=== PATIENT | male | born 1945 | race Caucasian/White ===

== ENCOUNTER 2016-12-19 18:55 | Inpatient (IN) | payer BC, OTHER ==
--- NOTE | ~2016-12-19 | HP ---
History And Physical [facility] [address] [place]. [address] NAME: GREG BANGURA JR : 47 STATUS : ADM IN [facility]#: [id number] AGE: 70 ADM/REG DATE : 12/19/16 MR#: [id number] REPORT SERV DATE: 12/20/16 DICTATED BY: JUAN FRANKLIN DATE: 12/19/16 REPORT STATUS : Draft TRANSCRIBED BY: MODMannie DATE: 12/19/16 DATE OF ADMISSION: 12/19/2016 POINT OF ENTRY: [facility] Emergency Department. PRIMARY CARE PHYSICIAN: Micheal Johnson M.D. of [facility]. CHIEF COMPLAINT: Weakness, trouble walking, shakes. HISTORY OF PRESENT ILLNESS: Mr. Bangura is a 70-year-old gentleman with history of chronic alcoholism with alcoholic cirrhosis as well as atrial fibrillation, hypertension, and insulin-dependent diabetes type 2 who presents to Emergency Department with the above mentioned complaints. The patient states he has been drinking approximately 875 mL of whisky per day. For some unclear reason, he decided to stop drinking last night. Stated his last drink was last night although he did attempt to have one beer today to help with the shakes that developed earlier this morning. However, it did not taste well and therefore, he did not consume the entire beer. He is unable to tell me exactly why he decided to stop drinking today. The patient states he has constant dizziness, requires using a cane at home for ambulation. He states he has peripheral neuropathy with impaired sensation in his bilateral lower extremities. Beginning today, he started to develop difficulties walking and even with the use of his cane, he could not walk without stumbling and/or falling to the ground. He denies any loss of consciousness. Denies any head trauma. Initial evaluation in the Emergency Department, blood pressure 177/141. EKG was atrial fibrillation with RVR. Pulse of 117. Labs notable for a magnesium level of 1.2. Alcohol level was negative. The patient had some chronic transaminitis. The patient was given some IV labetalol for his blood pressure as well as a half a milligram of IV Ativan for alcohol withdrawal and admitted to the Hospitalist Service. Comprehensive system was otherwise negative unless listed in the history of present illness. PREVIOUS MEDICAL HISTORY: 1. Alcoholism. 2. Alcoholic cirrhosis. 3. Hypertension. 4. Insulin-dependent diabetes mellitus type 2. 5. History of TIA. 6. Abdominal aortic aneurysm, status post repair. 7. Chronic thrombocytopenia. 8. Depression. 9. 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 10.Active tobacco abuse. History And Physical [address] [address] NAME: GREG BANGURA JR : 47 STATUS : ADM IN PAT#: [id number] AGE: 70 ADM/REG DATE : 12/19/16 MR#: [id number] REPORT SERV DATE: 12/20/16 DICTATED BY: JUAN FRANKLIN DATE: 12/19/16 REPORT STATUS : Draft TRANSCRIBED BY: SANTHOSH DATE: 12/19/16 SURGICAL HISTORY: Abdominal aortic aneurysm repair. ALLERGIES: ATENOLOL. HOME MEDICATIONS: 1. Albuterol 100 mg daily. 2. Vitamin D 1000 units daily. 3. Digoxin 0.25 mg daily. 4. Insulin 5 units b.i.d. 5. Lisinopril 5 mg daily. 6. Magnesium oxide 400 mg daily. 7. Seroquel 25 mg at bedtime p.r.n. 8. Ranitidine 300 mg daily. 9. Thiamine 100 mg daily. 10.Triamterene 50 mg daily. 11.Coreg, dose unknown. 12.Plavix, dose unknown. 13.Pradaxa, dose unknown. SOCIAL HISTORY: He states he smokes about three packs per day. Alcohol, has a history of chronic alcoholism. He states he consumed 1.75 L bottle of whisky every two days. Last drink was last night. Denies illicits. FAMILY MEDICAL HISTORY: Notable for hypertension. LABS AND IMAGIN. White count is 4.7, hemoglobin is 15.2, hematocrit is 42.1, platelet count is 47, INR is 1.2. 2. Sodium is 138, potassium 3.7, chloride 102, carbon dioxide 28, BUN 8, creatinine 0.81, glucose is 130, calcium is 8.2, magnesium is 1.2, protein 6.8, albumin is 3.2, bilirubin is 2.1. ALT 27, AST is 44, and alkaline phosphatase is 75. 3. Troponin is negative. 4. Alcohol level is negative. 5. Chest x-ray as per my review shows no acute cardiopulmonary abnormality. 6. EKG per my review shows atrial fibrillation with RVR. Heart rate of 117. Otherwise, no evidence of any acute ischemia or infarction. 7. CT scan of the brain, pending. PHYSICAL EXAMINATION: VITAL SIGNS: Temperature is 99.2 degrees Fahrenheit, pulse is 86, respirations 18, saturating 97% on room air, blood pressure is 177/141. There is no repeat blood pressure right now. GENERAL: Patient is awake, alert, in no acute distress. He is a chronically ill-appearing, disheveled, unkempt elderly male who is visibly tremulous. HEENT: Atraumatic and normocephalic. Moist mucous membranes. Pupils are equal, round, and reactive to light and accommodation. Extraocular movements intact. No scleral icterus. NECK: No jugular venous distention. No carotid bruits. History And Physical [address] [address] NAME: GREG BANGURA JR : 47 STATUS : [facility]M [facility]#: [id number] AGE: 70 ADM/REG DATE : 12/19/16 MR#: [id number] REPORT SERV DATE: 12/20/16 DICTATED BY: JUAN FRANKLIN DATE: 12/19/16 REPORT STATUS : Draft TRANSCRIBED BY: SANTHOSH DATE: 12/19/16 CARDIAC: Irregularly irregular rate and rhythm. No murmurs or gallops. Normal S1. Normal S2. LUNGS: Decreased breath sounds at bases with prolonged respiratory phase and some mild expiratory wheezes in the bases. ABDOMEN: Soft, nontender, and nondistended. Good bowel sounds. No rebound, guarding, or rigidity. EXTREMITIES: Warm and well perfused with no cyanosis or clubbing. Does have some 1+ pedal edema. SKIN: Warm and dry. PSYCH: Affect is tremulous and somewhat nervous. NEUROLOGIC: The patient is awake, alert, oriented x3. Cranial nerves II through XII are grossly intact. Speech is normal. Gait is not assessed. Cerebellar function is intact with [id number]. He has 4/5 strength bilateral lower extremities. The patient is visibly tremulous, has upper extremity tremors on extension as well as some mild asterixis and tongue fasciculations. ASSESSMENT AND PLAN: Mr. Bangura is a 70-year-old gentleman, history of alcoholism and alcoholic cirrhosis who presents with reports of shakiness in the status of recent alcohol abstinence as well as difficulties walking with ataxia. PROBLEM LIST: 1. Atrial fibrillation with rapid ventricular rate. 2. Hypertension. 3. Acute alcohol withdrawal. 4. Ataxia and dizziness. 5. Hypomagnesemia. 6. Alcoholic cirrhosis. 7. Peripheral neuropathy. PLAN: 1. Acute alcohol withdrawal. We will place the patient on some scheduled low-dose Librium given extensive alcohol intake history as well as thiamine, folate, and multivitamin. We will institute alcohol withdrawal protocol as well. 2. Atrial fibrillation with RVR. We will place the patient on diltiazem drip. If the patient maintains heart rates of greater than 110, checking his digoxin level, we will place the patient on some low-dose Coreg until his home Coreg dose can be confirmed. It appears that his Pradaxa was instructed to be held at last discharge secondary to his high fall risk due to alcohol withdrawal. We will continue to hold this until this can be addressed in the future. 3. Hypomagnesemia. Aggressive repletion 2 g IV here in the ER. 4. Hypertension. Suspect this is primarily due to alcohol withdrawal. We will treat this as well as continue the patient's home medications and IV hydralazine p.r.n. 5. Ataxia and dizziness. Suspect this is all secondary to the patient's chronic alcohol abuse with possible Wernicke encephalopathy as well as contribution from his known peripheral neuropathy. We will check a stat CT scan of the brain, place him on high- dose IV thiamine, have Physical Therapy evaluate the patient. It appears that the patient has had multiple admissions to our service in the past where he tends to always History And Physical [address] [address] NAME: GREG BANGURA : 47 STATUS : ADM IN PAT#: [id number] AGE: 70 ADM/REG DATE : 12/19/16 MR#: [id number] REPORT SERV DATE: 12/20/16 DICTATED BY: JUAN FRANKLIN DATE: 12/19/16 REPORT STATUS : Draft TRANSCRIBED BY: MODMannie DATE: 12/19/16 complain of ataxia and dizziness in the throes of either alcohol abuse and/or alcohol withdrawal and during his hospitalization, the patient seems to dramatically improve and is able to be discharged to home with only requirement of a cane for gait assistance. 6. Tobacco abuse. Nicotine replacement protocol. 7. Deep venous thrombosis prophylaxis. Lovenox subcu. CODE STATUS: The patient wishes to be full code. DAMARIS/RASHELL Juan Franklin MD / [id number] CC: Sincere Guo M.D.
--- NOTE | ~2016-12-19 | DS ---
Discharge Summary [address] [place]. [address] NAME: GREG BANGURA JR : 47 STATUS : DIS IN PAT#: [id number] AGE: 71 ADM/REG DATE : 12/19/16 MR#: [id number] REPORT SERV DATE: 12/22/16 DICTATED BY: MIGEL PARKINSON DATE: 12/21/16 REPORT STATUS : Draft TRANSCRIBED BY: MODL DATE: 12/21/16 ADMISSION DATE: 12/19/2016 DISCHARGE DATE: 12/21/2016 DISCHARGE DIAGNOSES: 1. Alcohol withdrawal. 2. Alcoholism. 3. Cirrhosis. 4. Chronic atrial fibrillation on Pradaxa. 5. Abdominal aortic aneurysm post stent graft, on Plavix. 6. Dizziness and ataxia associated with alcohol withdrawal, improved. 7. Uncontrolled hypertension, improved at discharge. 8. Type 2 diabetes with hemoglobin A1c 5.1. 9. Asymmetric edema, right greater than left lower extremity. 10.Leukopenia. 11.Thrombocytopenia. 12.Neuropathy. 13.Depression. 14.Chronic tobacco use. 15.Subclinical hypothyroidism. 16.Asymptomatic cholelithiasis. 17.Benign prostatic hypertrophy with history of elevated PSA, followed by Dr. Root. 18.Abnormal bladder CT, followed by Dr. Root. OPERATIONS AND PROCEDURES: None. PRESENT ILLNESS: This is a 70-year-old white male who was triaged in the emergency room on 12/19/2016 at 1714 hours, complaining of weakness. Admission vital signs: Blood pressure 177/141, temp 99.2, pulse 86, respirations 18, and O2 sat 97%. After evaluation in the emergency room, his primary diagnosis was alcohol withdrawal. He was referred to the Hospitalist Service for admission. He was seen by Dr. Vicente Govea and admitted as described on admission history and physical examination. Additional history included that he had been drinking roughly 875 mL of whiskey per day. He decided to stop drinking the night prior to his ER visit. He indicated that he has constant dizziness, using a cane or walker for ambulation, but that these symptoms progressed, prompting his ER visit. ADDITIONAL HISTORY: Per Dr. Govea. PHYSICAL EXAMINATION: Per Dr. Govea. ADMISSION LABORATORY: Per Dr. Govea. Discharge Summary [address] [place]. [address] NAME: GREG BANGURA JR : 47 STATUS : DIS IN PAT#: [id number] AGE: 71 ADM/REG DATE : 12/19/16 MR#: [id number] REPORT SERV DATE: 12/22/16 DICTATED BY: MIGEL PARKINSON DATE: 12/21/16 REPORT STATUS : Draft TRANSCRIBED BY: SANTHOSH DATE: 12/21/16 HOSPITAL COURSE: He was admitted with: 1. Atrial fibrillation with rapid ventricular response. 2. Hypertension. 3. Acute alcohol withdrawal. 4. Ataxia and dizziness. 5. Hypomagnesemia. 6. Alcoholic cirrhosis. 7. Peripheral neuropathy. On admission, he was given scheduled Librium plus alcohol withdrawal, CIWA protocol. He was placed on a Cardizem drip in addition to his home Coreg. Pradaxa and clopidogrel were held. He was given magnesium supplementation, multivitamins, and thiamine. His hospitalist care was assumed by the undersigned on 12/20/2016. He was seen at approximately 1140 hours. He felt better. He had no pain issues. He was eating without nausea or vomiting. He was calm without tremor. His blood pressure control was improving. At 1810 hours on that day, his CIWA was 1. He felt over-sedated. His Librium dosing was reduced. He was seen on 12/21/2016 at approximately 0940 hours. He felt fine. He had no pain complaints. He was not tremulous. He was eating without nausea or vomiting. He was ambulatory with a walker. He indicated that he needed to go home and wanted to be discharged. His blood pressure was 142/83, O2 sat 96% on room air, temp 97.8, and pulse 70 and irregular. He was calm with normal speech and he was oriented. His lungs were clear. He had no murmur or gallop. His abdomen was soft. He had lower extremity edema, right greater than left, which was unchanged. His sodium is 137, potassium 3.8, chloride 101, CO2 is 30, BUN 12, creatinine 0.74, glucose 102, calcium 8.2, magnesium 1.6, total protein 7, albumin 3.3, globulin 3.7, total bilirubin 3.1, alkaline phosphatase 77, ALT 26, AST 42. TSH 4.270, free T4 of 1.03. An ammonia was 20. White count 3.8, hemoglobin 15, and platelets 45,000. INR was 1.4. His blood sugars the previous day had been 118, 113, 111, and 141. A urine culture was growing Staph species, agglutination negative, and he was asymptomatic. His admission imaging was reviewed again. A brain CT showed atrophic changes with old deep white matter ischemic changes with no acute abnormality, and a chest x-ray did not show any Discharge Summary [address] [place]. [address] NAME: GREG BANGURA JR : 47 STATUS : DIS IN PAT#: [id number] AGE: 71 ADM/REG DATE : 12/19/16 MR#: [id number] REPORT SERV DATE: 12/22/16 DICTATED BY: MIGEL PARKINSON DATE: 12/21/16 REPORT STATUS : Draft TRANSCRIBED BY: SANTHOSH DATE: 12/21/16 infiltrate. It was felt that he had achieved a level of improvement and stability where he could be discharged home to the care of his son and 2 friends who stay with him. An appointment was made for him to be seen at the [facility] in one week. He indicated that he would consider as before alcohol rehab, and he understands that he "will if he continues drinking." DISCHARGE MEDICATIONS: His medications were reviewed and at discharge will be as follows: Coreg 12.5 mg twice daily, Seroquel 6.25 mg at bedtime as needed, B12 at 500 mcg daily, D3 at 1000 units daily, Pradaxa 150 mg twice daily, Plavix 75 mg daily, Lanoxin 0.25 mg daily, ranitidine 300 mg daily, Prinivil 5 mg daily, magnesium 420 mg daily, thiamine 100 mg daily, Viagra as needed. He will not use pending outpatient followup, Antivert, Dyrenium, insulin, Proscar, and allopurinol. The patient indicates that his Vascular and Cardiovascular physicians are aware of his coagulopathy and have recommended that he continue on Pradaxa and Plavix as described above, which he says he does take. Discharge time greater than 30 minutes. DICTATED BY: Migel Parkinson M.D. DD/SANTHOSH Migel Parkinson M.D. / [id number] CC: Sincere Durham M.D. [facility]
[~2016-12-19 18:55] MED LIST: *UNABLE1; B1100 PO; B12250T PO; COREG12 PO; COREG6 PO; DIGITEK0.25 MG PO; DYRENIUM50 MG PO; FLOMAX4 PO; FOLIC PO; LAN25 PO; LANTUS SC; LIBRIUM 10 MG C10 MG PO; MAGOX4 PO; MULTIPLE VIT PO; NOVOLOG SC; OMNICEF300 PO; PLAVIX PO; PRADAXA PO; PRADAXA150 MG PO; PRIN5 PO; PROSCAR5 PO; PROTONIX PO; VITAMIN D1000 UNI1 PO; ZANTAC 150 PO; ZANTAC300 MG PO
[2016-12-19] MEDS ORDERED: Z100 PO (19:19)
[2016-12-19] MEDS ORDERED: MAGOX4 PO (19:19)
[2016-12-19] MEDS ORDERED: DYRENIUM50 MG PO (19:20)
[2016-12-19] MEDS ORDERED: LAN25 PO (19:20)
[2016-12-19] MEDS ORDERED: PRIN5 PO (19:20)
[2016-12-19] MEDS ORDERED: VITAMIN D31000 UNIT PO (19:20)
[2016-12-19] MEDS ORDERED: B1100 PO (19:20)
[2016-12-19] MEDS ORDERED: NOVOLOG SC (19:21)
[2016-12-19 19:33] LABS: BASOPHILS 0.4 %; BASOPHILS ABSOLUTE 0.02 10/3/uL (0.0-0.16); EOSINOPHILS 0.6 %; EOSINOPHILS ABSOLUTE 0.03 10/3/uL (0.0-0.53); ER CBC TAT 0 Hrs 03 Mins; HEMATOCRIT 42.1 % (40.0-51.0); HEMOGLOBIN 15.2 g/dL (13.6-17.8); IMMATURE GRANULOCYTES 0.4 %; IMMATURE GRANULOCYTES ABSOLUTE 0.02 10/3/uL (0.0-0.11); LYMPHOCYTES 10.9 %; LYMPHOCYTES ABSOLUTE 0.51 10/3/uL (0.67-4.30); MEAN CORPUS HGB CONC 36.1 g/dL (32.0-36.0); MEAN CORPUSCULAR HEMOGLOB 34.4 pg (26.0-34.0); MEAN PLATELET VOLUME 8.6 fL (9.2-13.0); MONOCYTES 9.4 %; MONOCYTES ABSOLUTE 0.44 10/3/uL (0.21-1.20); NEUTROPHILS 78.3 %; NEUTROPHILS ABSOLUTE 3.65 10/3/uL (2.02-8.40); RBC DISTRIBUTION WIDTH 14.7 % (12.0-16.0); RED CELL COUNT 4.42 10/6/uL (4.7-6.1); WHITE BLOOD CELLS 4.7 10/3/uL (4.5-10.5)
[2016-12-19 19:35] LABS: MEAN CORPUSCULAR VOLUME 95.2 fL (80-100); PLATELET COUNT 47 10/3/uL (150-400)
[2016-12-19 19:36] LABS: MANUAL DIFF NO %
[2016-12-19 19:54] LABS: RBC MORPHOLOGY NORM (NORMAL)
[2016-12-19 19:55] LABS: INTERNATIONAL NORMAL RATI 1.2 UNITS (-); PROTIME (NOT ORD) 14.9 SEC (12.0-14.5)
[2016-12-19 19:56] LABS: PARTIAL THROMBO TIME 33.5 SEC (22.5-37.2)
[2016-12-19 20:01] LABS: ALBUMIN 3.2 G/DL (3.5-5.0); ALCOHOL < 10 MG/DL (0); ALKALINE PHOSPHATASE 75 U/L (45-117); BUN (BLOOD UREA NITROGEN) 8 MG/DL (6-23); CALCIUM, SERUM 8.2 MG/DL (8.5-10.4); CHEST PAIN PROFILE TAT 0 Hrs 31 Mins; CHLORIDE, SERUM 102 MMOL/L (96-112); CO2 (CARBON DIOXIDE) 28 MMOL/L (24-34); CREATININE 0.81 MG/DL (0.70-1.30); DIGOXIN 0.2 NG/ML (0.8-2.0); DIRECT BILIRUBIN 0.7 MG/DL (0.0-0.4); GFR AFRICAN AMERICAN 105 ML/MIN (>=60); GFR NON AFRICAN AMERICAN 91 ML/MIN (>=60); GLUCOSE, SERUM 130 MG/DL (60-99); INDIRECT BILIRUBIN(NOT ORDER) 1.4 MG/DL (0.1-0.9); POTASSIUM, SERUM 3.7 MMOL/L (3.5-5.3); SGOT(AST) 44 U/L (5-40); SGPT(ALT) 27 U/L (5-65); SODIUM, SERUM 138 MMOL/L (135-148); TOTAL BILIRUBIN 2.1 MG/DL (0-1.2); TOTAL PROTEIN 6.9 G/DL (6.0-8.5); TROPONIN I <0.02 NG/ML (<0.05)
[2016-12-19] MEDS ORDERED: ZANTAC300 MG PO (20:28)
[2016-12-19] MEDS ORDERED: SEROQUEL25 PO (20:29)
[2016-12-19] MEDS ORDERED: PRADAXA150 MG PO (20:29)
[2016-12-19] MEDS ORDERED: COREG12 PO (20:29)
[2016-12-19] MEDS ORDERED: PLAVIX PO (20:29)
[2016-12-19] MEDS ORDERED: *UNABLE1 (20:31)
[2016-12-20 04:02] LABS: ASCORBIC ACID (UR NOT ORDER) NEG (NEG); BILIRUBIN, URINE NEGATIVE (NEG); KETONE, URINE NEGATIVE (NEG); LEUKOCYTE ESTERASE(NOT OR LARGE (NEG); WBC (NOT ORDERED) (RFLEX) 93 (0-5)
[2016-12-20 06:37] LABS: BUN (BLOOD UREA NITROGEN) 11 MG/DL (6-23); CALCIUM, SERUM 7.9 MG/DL (8.5-10.4); CHLORIDE, SERUM 101 MMOL/L (96-112); CO2 (CARBON DIOXIDE) 27 MMOL/L (24-34); FREE T4 1.03 NG/DL (0.76-1.46); GFR AFRICAN AMERICAN 101 ML/MIN (>=60); GFR NON AFRICAN AMERICAN 87 ML/MIN (>=60); GLUCOSE, SERUM 128 MG/DL (60-99); PHOSPHORUS, SERUM 2.2 MG/DL (2.5-4.5); POTASSIUM, SERUM 3.7 MMOL/L (3.5-5.3); SODIUM, SERUM 138 MMOL/L (135-148)
[2016-12-20 06:38] LABS: DIGOXIN 0.6 NG/ML (0.8-2.0); FOLATE 5.1 NG/ML (>5.2)
[2016-12-20 06:56] LABS: BASOPHILS 0.8 %; EOSINOPHILS 0.7 %; HEMATOCRIT 41.9 % (40.0-51.0); HEMOGLOBIN 14.6 g/dL (13.6-17.8); LYMPHOCYTES 20.3 %; LYMPHOCYTES ABSOLUTE 0.7 10/3/uL (0.7-4.3); MEAN CORPUS HGB CONC 34.8 g/dL (32.0-36.0); MEAN CORPUSCULAR VOLUME 97.7 fL (80-100); MEAN PLATELET VOLUME 7.1 fL (6.8-10.8); MONOCYTES 9.2 %; MONOCYTES ABSOLUTE 0.3 10/3/uL (0.2-1.2); NEUTROPHILS ABSOLUTE 2.2 10/3/uL (2.0-8.4); PLATELET COUNT 53 10/3/uL (150-400); RBC DISTRIBUTION WIDTH 15.8 % (12.0-16.0); RED CELL COUNT 4.28 10/6/uL (4.7-6.1); WHITE BLOOD CELLS 3.3 10/3/uL (4.5-10.5)
[2016-12-20 06:59] LABS: MANUAL DIFF NO %
[2016-12-20 07:45] LABS: EOSINOPHILS 1 %; EOSINOPHILS ABSOLUTE (CALC) 0.03 10/3/uL (0.0-0.53); LYMPHOCYTES 21 %; LYMPHOCYTES ABSOLUTE (CALC) 0.69 10/3/uL (0.67-4.30); MONOCYTES 9 %; NEUTROPHILS ABSOLUTE (CALC) 2.28 10/3/uL (2.02-8.40); PLATELET ESTIMATE DEC (ADEQUATE); RBC MORPHOLOGY NORM (NORMAL); SEGMENTED NEUTROPHIL (0) 69 %; TOTAL NUCLEATED CELLS 100
[2016-12-20 10:47] LABS: GLYCOHEMOGLOBIN (HbA1c) 5.1 % (4.7-6.1)
[2016-12-20] MEDS ORDERED: VIAGRA100 MG PO (11:09)
[2016-12-20] MEDS ORDERED: PROSCAR5 PO (11:10)
[2016-12-20] MEDS ORDERED: MCZ25 PO (11:10)
[2016-12-20] MEDS ORDERED: B12100T PO (11:11)
[2016-12-21 06:54] LABS: BASOPHILS 0.3 %; BASOPHILS ABSOLUTE 0.01 10/3/uL (0.0-0.16); EOSINOPHILS 1.6 %; EOSINOPHILS ABSOLUTE 0.06 10/3/uL (0.0-0.53); HEMATOCRIT 42.8 % (40.0-51.0); IMMATURE GRANULOCYTES 0.3 %; IMMATURE GRANULOCYTES ABSOLUTE 0.01 10/3/uL (0.0-0.11); LYMPHOCYTES 22.1 %; LYMPHOCYTES ABSOLUTE 0.83 10/3/uL (0.67-4.30); MEAN CORPUSCULAR HEMOGLOB 33.9 pg (26.0-34.0); MEAN CORPUSCULAR VOLUME 96.8 fL (80-100); MEAN PLATELET VOLUME 9.2 fL (9.2-13.0); MONOCYTES 7.4 %; MONOCYTES ABSOLUTE 0.28 10/3/uL (0.21-1.20); NEUTROPHILS 68.3 %; NEUTROPHILS ABSOLUTE 2.57 10/3/uL (2.02-8.40); PLATELET COUNT 45 10/3/uL (150-400); RBC DISTRIBUTION WIDTH 14.8 % (12.0-16.0); RED CELL COUNT 4.42 10/6/uL (4.7-6.1); WHITE BLOOD CELLS 3.8 10/3/uL (4.5-10.5)
[2016-12-21 06:55] LABS: MANUAL DIFF NO %
[2016-12-21 06:59] LABS: INTERNATIONAL NORMAL RATI 1.4 UNITS (-); PROTIME (NOT ORD) 17.1 SEC (12.0-14.5)
[2016-12-21 07:12] LABS: A/G RATIO 0.9 (0.7-1.9); ALBUMIN 3.3 G/DL (3.5-5.0); ALKALINE PHOSPHATASE 77 U/L (45-117); BUN (BLOOD UREA NITROGEN) 12 MG/DL (6-23); CALCIUM, SERUM 8.2 MG/DL (8.5-10.4); CHLORIDE, SERUM 101 MMOL/L (96-112); CO2 (CARBON DIOXIDE) 30 MMOL/L (24-34); CREATININE 0.74 MG/DL (0.70-1.30); GFR AFRICAN AMERICAN 109 ML/MIN (>=60); GFR NON AFRICAN AMERICAN 94 ML/MIN (>=60); GLOBULIN 3.7 G/DL (2.5-4.1); GLUCOSE, SERUM 102 MG/DL (60-99); POTASSIUM, SERUM 3.8 MMOL/L (3.5-5.3); SGOT(AST) 42 U/L (5-40); SGPT(ALT) 26 U/L (5-65); SODIUM, SERUM 137 MMOL/L (135-148); TOTAL BILIRUBIN 3.1 MG/DL (0-1.2)
[2016-12-21 07:17] LABS: RBC MORPHOLOGY NORM (NORMAL)
[2017-01-27] MEDS ORDERED: AUG875 PO (11:30)
== END 2016-12-21 12:00 | disposition home or self-care (01) | DRG 897 ==
LOC: ER 18:55 → 6NO 21:22
PROVIDERS: Internal Medicine; Specialist
PROC: HZ2ZZZZ Detoxification Services for Substance Abuse Treatment (ICD-10-PCS; principal; 2016-12-19)
DX: F10.239 Alcohol dependence with withdrawal, unspecified (principal); E11.42 Type 2 diabetes mellitus with diabetic polyneuropathy; D69.6 Thrombocytopenia, unspecified; E83.42 Hypomagnesemia; I48.2 Chronic atrial fibrillation; K70.30 Alcoholic cirrhosis of liver without ascites; I10 Essential (primary) hypertension; I71.4 Abdominal aortic aneurysm, without rupture; F32.9 Major depressive disorder, single episode, unspecified; F17.210 Nicotine dependence, cigarettes, uncomplicated; N40.0 Benign prostatic hyperplasia without lower urinary tract symptoms; R16.1 Splenomegaly, not elsewhere classified; R27.0 Ataxia, unspecified; R97.20 Elevated prostate specific antigen [PSA]; K80.20 Calculus of gallbladder without cholecystitis without obstruction; Z79.4 Long term (current) use of insulin; Z86.73 Personal history of transient ischemic attack (TIA), and cerebral infarction without residual deficits; Z79.02 Long term (current) use of antithrombotics/antiplatelets
CPT/HCPCS: 70450; 71010; 80048; 80053; 80076; 80162; 81001; 82140; 82607; 82746; 82962; 83036; 83735; 84100; 84439; 84443; 84484; 85025; 85610; 85730; 87086; 93005; 96365; 96366; 96375; 99285; A9270-GY; G0480; J3411; J3475